=== PATIENT | female | born 1960 | race African-American/Black ===

== ENCOUNTER → 2016-12-27 | Outpatient (CLI) | payer MEDICARE, OTHER ==
[~2016-12-27] VITALS: Ht 165.1 cm; Wt 105.0 kg
[~2016-12-27] MED LIST: ASPI-664 PO; GLIP-95 PO; HYDR-3498 PO; INSU300I SQ; METF1000 PO; SITA100T8 PO
[2016-12-27 13:50] VITALS: BP 107/59; PULSE 84; RESP 18; Ht 165.1 cm; Wt 105.0 kg
--- NOTE | 2016-12-27 15:04 | PN ---
Date/Time of Note Date/Time of Note DATE: 12/27/16 TIME: 14:14 Assessment/Plan Assessment/Plan Assessment/Plan [facility] Outpatient Progress Note Date of Service: 12/27/2016 Today's Assessment & Plan: Overall stable and doing well. Patient's port appears to be tilted in the soft tissue and this is the reason why there is some difficulty in accessing the port. This can be easily overcome by pushing on the slight protuberance that is visible and palpable on the skin which is from the side of the metallic port. Pushing this part down will allow access at a slight angle of the needle to get into the chamber of the port. Surgical modification of this area is possible, but it appears to be too much risk for to little gain and at this time is not recommended. I explained to the patient who appeared to understand and agreed with the plans and the recommendations. With above assessment, I've recommended the following for today: 1. Continue using the port, but with instructions as above. 2. F/u with us prn Thank you again for your great care of this very pleasant young lady and her wonderful family. If there are any questions, please feel free to call me at . Disclaimer: Inadvertent spelling and grammatical errors are likely due to EHR/ dictation software use and do not reflect on the quality of delivered patient care. Also, please note that the electronic time recorded on this node does not necessarily reflect the actual time of the visit. Updated Clinical Summary: The patient is a very pleasant 56-year-old lady with past medical history significant for colon cancer stage IV colon cancer (T3N0 M1) with single solitary metastasis to segment 6/7 of liver, who appeared to have a resectable lesion. Status post laparoscopic partial right hepatectomy with tunneled Port-A- Cath placement 10/05/15. No evidence for major complication or wound problem. D/ c home 10/07/15. Final path: MICROSCOPIC DIAGNOSIS A-Portion of right lobe of liver, segments 6 and 7, laparoscopic hand assisted partial hepatectomy: -- Metastatic moderately-differentiated adenocarcinoma extends to, but does not penetrate the overlying capsule, consistent with colon primary (tumor measures 4.5 cm in greatest dimension). -- Medial resection margin is clear by 2.0 cm. -- Steatosis, predominantly macrovesicular, moderate. -- No liver cirrhosis is identified. B-Umbilical keloid, excision: -- Skin with hypertrophic scar. -- No malignancy is identified. She represented Dec 2016 with a tilted port that seemed to cause some issues with access, and pain with significant manipulation in the process of getting access to the chamber when trying to infuse chemotherapy agents. Comorbidities: 1. History of colon cancer as above, initially thought to be stage II (T3 N0), microsatellite stable, Oncotype score 12 with risk of recurrence with surgery of 12% at 3 years and with chemotherapy risk of recurrence at 5 years of 5%. After discussions with the patient, decision was made not to give any further treatment and to perform abdominal scans every 9 months for the next 2-3 years unless often afterwards. Liver lesion noted on PET scan with follow-up MRI showing a 2.5 x 2.0 cm lesion in right lobe of the liver. CT-guided biopsies as above, latest of which was June 2015 that showed evidence for adenocarcinoma. S /p laparoscopic partial right hepatectomy with tunneled Port-A-Cath placement . 2. Super morbidly obese (BMI 41) 3. Hypercholesterolemia 4. Diabetes mellitus 5. Transverse colon resection 06/09/2014 for stage II colon cancer 6. S/p FOLFOX/Avastin since 11/15/2015 (x9); switch to maintenance Xeloda/Avastin May 2016; new R shoulder lesion Dec 2016 Subjective: No major events or complaints since more than a year ago; port complaints as above; not a major issue; port reportedly works well once accessed; no major abd pain and under control with medications; no n/v/d; no sob or cp; + activity ; ? new R shoulder mass, being worked up Objective: Vitals: See below Exam: GENERAL: On exam, the patient was sitting in a chair and appeared to be comfortable and in no acute distress. CHEST: port site c/d/i w/o obvious e/e/d/major tenderness; port a bit tilted with one corner protruding out a bit. No major tenderness to manipulation of the chamber. Skin overlying the area pink and viable. ABDOMEN: Soft, nontender and nondistended. Incisions are clean, dry and intact without any evidence of erythema, edema, discharge, or hernia. There are no peritoneal signs or guarding. SKIN: Skin appears to be pink and feels warm to touch. NEUROLOGIC: Patient is awake, alert, and follows commands appropriately. Exam/Review of Systems Vital Signs Vitals Vital Signs Date Time Temp Pulse Resp B/P Pulse Ox O2 Delivery O2 Flow Rate FiO2 12/27/16 13:50 98.1 84 18 107/59 96 Room Air BENITO VERDUZCO M.D. Dec 27, 2016 15:04
== END | disposition home or self-care (01) ==
LOC: HPC 13:44
PROVIDERS: ATTEND Transplant Surgery
DX: Z45.89 Encounter for adjustment and management of other implanted devices (principal); Z85.038 Personal history of other malignant neoplasm of large intestine; C78.7 Secondary malignant neoplasm of liver and intrahepatic bile duct; E66.01 Morbid (severe) obesity due to excess calories; Z68.41 Body mass index [BMI] 40.0-44.9, adult; E78.00 Pure hypercholesterolemia, unspecified; E11.9 Type 2 diabetes mellitus without complications